=== PATIENT | male | born 1955 | race Caucasian/White ===

== ENCOUNTER → 2018-12-14 | Outpatient (CLI) | payer OTHER ==
[~2018-12-14] MED LIST: ATOR20TA58 PO; CHOL10003 PO; LEVO100T5 PO
--- NOTE | 2018-12-14 21:54 | PAIN ---
DATE OF SERVICE: 12/14/2018 HISTORY OF PRESENT ILLNESS: The patient is a 63-year-old male who presents with history of pain, low back, left lower extremity, posterior gluteus, posterior thigh, posterior calf with a long history of pain for many years status post lumbar laminectomy without significant improvement in the pain. The patient has had previous physical therapies, chiropractic treatments, acupuncture, epidural steroid injections as well as trigger point injections over the years without significant long-term relief or improvement. The patient reports the pain now as sharp, tingling, always comes and goes with numbness and radiating pain in the left leg. Has described the burning sensation as well, worse with standing, walking and better with lying down. The patient reports he has almost no pain when he lies down, but otherwise is significantly painful, even sitting for more than about 15-20 minutes can increase the pain. The patient reports it does not awaken him from sleep at night. It is worse with walking and standing. It does not affect his bowel or bladder control, but does affect his ability to walk. He is using a cane in his right hand with ambulation, has it with him today. The patient had an MRI scan showing improved central canal stenosis at L3-L4 and L4-L5, status post laminectomy, persistent bilateral foraminal narrowing at L3-L4 and L4-L5 in part due to postoperative edema, early fibrosis evidenced by thickening enhancement surrounding the foramina, persistent disk bulge at L5-S1 causing moderate central canal stenosis. The patient has recently seen his neurosurgeon who is not recommending any further surgery at this time and has referred him on for more conservative care. The patient reports a disability rate from 0-10, 10 being the worst, is a 9 with family home responsibilities, social activity, occupation, self-care and life support activities, 10 with recreation and sexual behavior. The patient reports no loss of motor function of the lower extremity, but significant fatigability in the left leg with any ambulation even for more than about 10-15 minutes, he has to stop and sit down, which relieves the pain by about 75%, but then, the pain returns once he is walking or standing again. The patient shows no symptoms on the right lower extremity. PAST MEDICAL HISTORY: Significant for hearing loss, bilateral hearing aids, hyperlipidemia, arthritis, peripheral vascular disease. PREVIOUS SURGERY: Includes cervical fusion in 2017, a lumbar surgery with laminectomy in 2018. CURRENT MEDICATIONS: Include levothyroxine, atorvastatin, and vitamin D3. The patient has taken hydrocodone as well as oxycodone in the past, [id number] anti-inflammatories without significant improvement as well. FAMILY HISTORY: Significant for no major medical problems or condition the patient lists. SOCIAL HISTORY: The patient drinks about two alcoholic drinks a week on average. Does smoke and continues to smoke cigarettes about 50 years, one pack a day on average. Does not use any illegal, illicit or recreational drugs. The patient is single, lives locally in [place], [place]. REVIEW OF SYSTEMS: Positive for those items mentioned in history of present illness. All systems reviewed and otherwise negative. It is complete, full and well documented on the patient's chart. PHYSICAL EXAMINATION: VITAL SIGNS: Today, the patient's blood pressure is 120/80, pulse is 85, respirations 20, temperature is 98.1 degrees Fahrenheit, height is 5 feet 4 inches, weight is 111 pounds. GENERAL: The patient is awake, alert, oriented, appropriate, very pleasant demeanor. HEENT: Head shows normocephalic, atraumatic. Extraocular muscles are intact and symmetrical. Oral cavity: Mucous membranes moist and pink. Dentition is intact. NECK: Shows anterior throat supple without palpable adenopathy noted. Swallow reflex is symmetrical. CHEST: Shows normal with inspection. Breath sounds are clear to auscultation bilaterally. HEART: Shows S1, S2 clear. No murmurs auscultated. ABDOMEN: Soft, nontender, nondistended. No palpable organomegaly is noted. No rebound or guarding demonstrated. BACK: Shows spine grossly in the midline. Normal appearing thoracic kyphosis and some flattening of lumbar lordotic curvature. Well-healed midline surgical scar, which is fairly extensive and throughout the lumbar distribution. The patient's lumbar paraspinous musculature shows symmetrical on inspection, but with palpation shows some moderate tenderness throughout the upper, middle, lower distribution of paraspinous muscles bilaterally without significant radiation or trigger points, but it is very firm, very tender. This is true and the spinous processes are mildly tender. No tenderness over the sacrum or sacroiliac regions. The patient has good rotational motion of lumbar spine, both laterally greater than 10 degrees right and left as well as extension greater than 10 degrees, essentially mild pain reported with any of these maneuvers. Forward flexion at 45 degrees is performed without significant difficulty. EXTREMITIES: The patient's lower extremities show deep tendon reflexes at 1+ in the patellar and tendo calcaneus tendons are equal. Motor exam is approximately 4 on a scale of 5, but equal and symmetrical dorsiflexion, extension, quadriceps and hamstring flexion. Peripheral pulses are 1+ posterior tibial. No peripheral edema is noted bilaterally. Lower extremities are warm and dry to touch, equal in color and appearance. Straight leg raise noted to be positive on the left about 40 degrees, decreased with knee flexion and negative on the right side. Gaenslen's and Steve's maneuvers are negative bilaterally as well. The patient is able to stand, stand on his toes without significant loss of balance, walks with a slight favoring gait, does appear to favor the left lower extremity, again using a cane in his right hand to ambulate. SKIN: Warm and dry, good turgor. No edema. No sores, rashes or bruising throughout. IMPRESSION: 1. This is a 63-year-old male with a long history of low back pain status post lumbar laminectomy with persistent radiculopathy, a recent visit with surgeon recommending no surgical intervention at this time. 2. MRI scan of lumbar spine as noted. 3. Arthritis. 4. Hyperlipidemia. 5. Tobacco use. PLAN: Options were discussed with the patient including conservative medical management, physical therapy, interventional techniques and he would like to pursue interventional techniques as he has had multiple techniques done without significant improvement over the years. We did discuss spinal cord stimulator, which is recommended by his primary physician as well. The patient is interested in this and was given some literature regarding this. We discussed this in great detail showing models and described the procedure as well. The patient will first to have a psychiatric evaluation to assess appropriateness for implantable devices and spinal surgery or spinal devices and we will wait for preauthorization for spinal cord stimulator temporary lead trial. In the meantime, the patient will maintain with stretching and strengthening exercises, activity as tolerated and walking daily as possible. The patient will follow up on psychiatric evaluation, is obtained. If this is cleared, we will have preauthorization done for spinal cord stimulator trial at that time. CARMEN NEIL MD DR: TRI/ilan JOB#: [id number] / [id number] ramonita RUEDA, Rosie Irvin
== END | disposition home or self-care (01) ==
LOC: PNCL 09:36
PROVIDERS: ATTEND Anesthesiology
DX: M54.16 Radiculopathy, lumbar region (principal); M19.90 Unspecified osteoarthritis, unspecified site; E78.5 Hyperlipidemia, unspecified; Z72.0 Tobacco use
CPT/HCPCS: G0463

== ENCOUNTER → 2019-02-13 | Outpatient (CLI) | payer OTHER ==
[~2019-02-13] MED LIST changes: +LIDOCAINE 1% PF 2 ML VIAL. ONE
--- NOTE | 2019-02-14 01:07 | PAIN ---
DATE OF SERVICE: 02/13/2019 PROGRESS NOTE FOR PAIN CLINIC DIAGNOSES: Lumbar radiculopathy with lumbar spinal stenosis and lumbar post-laminectomy syndrome. HISTORY OF PRESENT ILLNESS: The patient is a 63-year-old male who returns for followup status post initial evaluation and preauthorization for spinal cord stimulator temporary lead placement. The patient returns today with passing a good category for his psychiatric evaluation and also preauthorization with his insurance for spinal cord stimulator temporary lead placement. The patient reports still significant pain in the low back, mostly in the right leg, posterior gluteus, posterior thigh, posterior calf and ankle, sharp, burning, cramping and becoming severe with walking and standing, describes it as a 10 on a scale of 10 at its worse over the past week, 8 at its average, 8 at its least and is an 8 today. The patient reports it is better with sitting or lying down and much worse with standing, walking and weightbearing; does not awaken him from sleep at night, most nights. The patient reports no new motor or sensory deficits and no new bowel or bladder incontinence or other complaints. PHYSICAL EXAMINATION: VITAL SIGNS: The patient's blood pressure 117/76, pulse 83, respirations 18 and temperature 98.2 degrees Fahrenheit. Height is 5 feet 5 inches and weight is 106 pounds. GENERAL: The patient is awake, alert, oriented, appropriate and very pleasant demeanor. HEENT: Shows normocephalic and atraumatic. Extraocular movements are intact and symmetrical. Oral cavity, mucous membranes are moist and pink. Dentition is intact. NECK: Shows anterior throat supple without palpable lymphadenopathy noted. Swallow reflex symmetrical. CHEST: Shows normal with inspection. Breath sounds are clear bilaterally. HEART: Shows S1 and S2 clear. ABDOMEN: Soft, nontender and nondistended. BACK: Shows spine grossly in the midline. Well-healed surgical scar is noted in the lumbar distribution with some flattening of the lumbar paraspinous musculature. Paraspinous muscle shows moderate tenderness with palpation bilaterally throughout the upper, middle and lower distribution of the paraspinous muscles diffusely without radiation. EXTREMITIES: Lower extremities show deep tendon reflexes 1+ in the patella and tendo-calcaneus tendons are equal. Motor exam is strong with approximately 4 on scale 5 but symmetrical dorsiflexion, extension, quadriceps and hamstring flexion. Peripheral pulses are 1+ posterior tibial. No peripheral edema is noted. Options were discussed with the patient. The patient's old chart was reviewed as well as his current medication regimen updated. Current review of systems updated today as well. We will proceed with a spinal cord stimulator temporary lead placement x 2 today with fluoroscopic guidance. Risks were again discussed including, but not limited to bleeding, infection, possibility of epidural hematoma, subsequent neurologic compromise, dural puncture, headaches, spinal cord and/or nerve damage, side effects of exposure to fluoroscopy as well as poor results regarding pain control. The patient understands and wished to proceed. The patient will return to clinic in approximately 1 week for removal of the leads and reassessment of the stimulation at that time. DIAGNOSES: Lumbar radiculopathy with lumbar spinal stenosis and post-lumbar laminectomy syndrome. PROCEDURE: Spinal cord stimulator temporary lead placement x 2, under sterile prep and drape using local anesthetic, 1% lidocaine for localization of the skin and then subcutaneous tissues for needle insertion. The patient in prone position under sterile prep and drape using C-arm fluoroscopic guidance in both AP and lateral views, insertion sites were entered at the L2-L3 level in the midline in the epidural space using a 14-gauge TerraPowertead needle with stylet x 2, the first right of midline and second left of midline in a paramedian approach. Again, preservative-free normal saline was used to identify the epidural space without difficulty with negative aspiration at each insertion site under direct visualization and fluoroscopic view. The spinal cord stimulator leads were then advanced without restriction into the epidural space through the needle and advanced to the first needle at the top of the first electrode at the superior endplate of the T8 vertebral body and the second one at the T9 vertebral body. These were confirmed and posterior placement as well as midline placement in both AP and lateral fluoroscopic views. Cummings were withdrawn. Stylets were withdrawn. Suture was used to secure the leads under sterile drape as well using anchoring devices and suture and then Mastisol, Steri-Strips and bandages were applied and under sterile technique. CONDITION AT DISCHARGE: Stable. The patient tolerated the procedure well and had no complications and was discharged under his own power. We will follow up in approximately 1 week for removal and reassessment at that time. CARMEN NEIL MD DR: TRI/ilan JOB#: [id number] / [id number]
== END | disposition home or self-care (01) ==
LOC: PNCL 12:56
PROVIDERS: ATTEND Anesthesiology
DX: M48.061 Spinal stenosis, lumbar region without neurogenic claudication (principal); M54.16 Radiculopathy, lumbar region; M96.1 Postlaminectomy syndrome, not elsewhere classified
CPT/HCPCS: 63650; C1897

== ENCOUNTER → 2019-02-19 | Outpatient (CLI) | payer OTHER ==
[~2019-02-19] MED LIST changes: -LIDOCAINE 1% PF 2 ML VIAL. ONE
--- NOTE | 2019-02-19 19:43 | PAIN ---
DATE OF SERVICE: 02/19/2019 DIAGNOSES: Lumbar radiculopathy with lumbar spinal stenosis and post-lumbar laminectomy syndrome. The patient is a 63-year-old male who returns for followup status post spinal cord stimulator temporary lead placement x 2 one week ago. The patient reports he did fairly well through the week, had some reprogramming with our [employer] rep Rober Law. Overall, he is about 60% improved. The patient reports he has been increasing his ability to stand and walk better with greater duration, standing especially and it is the best that he has felt in probably 2-3 years as far as standing for prolonged periods by his report. The patient reports still some pain in the low back, into the right lower extremity as it was, but much improved. The patient reports he has been increasing his activity during the week, walking greater distances, standing for greater duration as well. The patient reports his pain is a 10 on a scale of 10 at its worst over the past week, 6 on average and a 5 at its least, and is a 5 today. The patient reports it is tingling and burning, radiating in the low back, posterior gluteus, posterior thigh, posterior calf, but again much improved. PHYSICAL EXAMINATION: VITAL SIGNS: The patient's blood pressure 99/65, pulse 87, respirations are 18, temperature 98.9 degrees Fahrenheit. Height is 5 feet 5 inches, weighs 107 pounds. GENERAL: The patient is awake, alert, oriented, appropriate, very pleasant demeanor. HEENT: Shows normocephalic, atraumatic. Extraocular muscles are intact and symmetrical. Oral cavity, mucous membranes moist and pink. Dentition is intact. NECK: Shows anterior throat supple. Swallow reflex symmetrical. CHEST: Shows normal on inspection. Breath sounds are clear to auscultation bilaterally. HEART: Shows S1, S2 clear. No murmurs auscultated. ABDOMEN: Soft, nontender, nondistended. No palpable organomegaly is noted. No rebound or guarding demonstrated. BACK: Shows spine grossly in the midline. Normal appearing thoracic kyphosis and lumbar lordotic curvature slightly flattened. Lumbar paraspinous muscle shows symmetrical on inspection, on palpation shows some moderate tenderness diffusely, but only diffusely without radiation. The patient has good rotational motion of lumbar spine both laterally as well as extension and flexion without difficulty. The patient's wound dressing was taken down under sterile prep and exposed the spinal cord stimulator wires. Under sterile technique, the sutures were cut and the leads were removed x 2 with tips intact. No erythema, no drainage, no tenderness around the sites of insertion. The patient's wound was then sterilely cleaned with alcohol, prepped and sterilely bandaged. EXTREMITIES: Lower extremities show deep tendon reflexes at 1+ in the patellar and tendo calcaneus tendons are equal. Motor exam is approximately 4 on a scale of 5, but equal and symmetrical dorsiflexion, extension, quadriceps and hamstring flexion. Options were discussed with the patient. The patient's old chart was reviewed as his current medication regimen updated. Current review of systems updated today as well. We will make arrangements for permanent spinal cord stimulator placement. The patient will follow up as scheduled. CARMEN NEIL MD DR: TRI/ilan JOB#: [id number] / [id number]
== END | disposition home or self-care (01) ==
LOC: PNCL 11:41
PROVIDERS: ATTEND Anesthesiology
DX: M54.16 Radiculopathy, lumbar region (principal); M48.061 Spinal stenosis, lumbar region without neurogenic claudication; M96.1 Postlaminectomy syndrome, not elsewhere classified
CPT/HCPCS: G0463